=== PATIENT | male | born 1975 | race Caucasian/White ===

== ENCOUNTER → 2017-11-09 | Outpatient (REF) | payer BC | LOC: M LAB REF 08:27 | DX: L02.11 Cutaneous abscess of neck (principal) | CPT/HCPCS: 87186 ==

== ENCOUNTER → 2018-09-28 | Outpatient (CLI) | payer BC | LOC: M WUC 16:51 | DX: M51.37 Other intervertebral disc degeneration, lumbosacral region (principal); M25.78 Osteophyte, vertebrae; M54.5 Low back pain | CPT/HCPCS: 72110 ==

== ENCOUNTER → 2020-07-22 | Outpatient (CLI) | payer BC ==
--- NOTE | 2020-07-29 18:07 | REP ---
THORACIC SPINE SERIES HISTORY: Pain at T10 to T12. TECHNIQUE: Three AP and lateral views of the thoracic spine are performed. FINDINGS: There is no compression fracture or malalignment. There is normal thoracic kyphosis. There is very mild spurring of the upper and mid thoracic vertebral bodies with a more moderate degree of spurring of T9 through T12. There is very mild disc space narrowing and subchondral sclerosis noted. Posterior elements appear intact. There is slight curvature toward the right. IMPRESSION: Degenerative changes as discussed above. No evidence of fracture or malalignment. MTDD
== END ==
LOC: M WUC 12:32
PROVIDERS: ATTEND Physician Assistant Medical
DX: M51.34 Other intervertebral disc degeneration, thoracic region (principal)

== ENCOUNTER → 2020-09-23 | Outpatient (CLI) | payer SELFPAY | LOC: M LABSMTC 15:31 | PROVIDERS: ATTEND Pediatrics | DX: Z20.828 Contact with and (suspected) exposure to other viral communicable diseases (principal) ==

== ENCOUNTER → 2020-11-25 | Outpatient (REF) | payer BC ==
[2020-11-27 09:07] LABS: LDL DIRECT 98 mg/dL (0-99)
== END ==
LOC: M LAB REF 12:12
PROVIDERS: ATTEND Physician Assistant Medical
DX: E78.00 Pure hypercholesterolemia, unspecified (principal)

== ENCOUNTER → 2023-11-11 | Outpatient (CLI) | payer BC ==
[~2023-11-11] MED LIST: PROHANCE 279.3MG/ML 15ML VIAL ONE; PROHANCE 279.3MG/ML 5ML VIAL ONE
== END ==
LOC: M PLAIMG 08:10
PROVIDERS: ATTEND Physician Assistant Medical
DX: R51.9 Headache, unspecified (principal); H54.7 Unspecified visual loss; J01.30 Acute sphenoidal sinusitis, unspecified
CPT/HCPCS: 70544; 70553; A9576

== ENCOUNTER → 2023-11-23 | Outpatient (CLI) | payer BC | LOC: M WUC 13:25 | PROVIDERS: ATTEND Internal Medicine | DX: S12.400A Unspecified displaced fracture of fifth cervical vertebra, initial encounter for closed fracture (principal); Y93.9 Activity, unspecified; Y92.9 Unspecified place or not applicable ==

== ENCOUNTER → 2024-01-27 | Outpatient (REF) | payer BC | LOC: M LAB REF 17:30 | PROVIDERS: ATTEND Physician Assistant Medical | DX: R51.9 Headache, unspecified (principal) ==

== ENCOUNTER → 2024-02-18 | Outpatient (CLI) | payer BC ==
[~2024-02-18] MED LIST changes: +PROHANCE 279.3MG/ML 15ML VIAL As Ordered ONE; -PROHANCE 279.3MG/ML 15ML VIAL ONE; -PROHANCE 279.3MG/ML 5ML VIAL ONE
== END ==
LOC: M RAD 15:33
PROVIDERS: ATTEND Physician Assistant Medical
DX: R51.9 Headache, unspecified (principal)
CPT/HCPCS: 70549; A9576

== ENCOUNTER → 2024-05-29 | Outpatient (REF) | payer BC | LOC: M LAB REF 17:18 | PROVIDERS: ATTEND Physician Assistant Medical | DX: K59.00 Constipation, unspecified (principal) ==

== ENCOUNTER 2024-08-31 09:22 | Day surgery (SDC) | payer BC ==
[~2024-08-31] VITALS: Ht 170.2 cm; Wt 105.1 kg
[~2024-08-31 09:22] MED LIST changes: +FLUO20TA28 PO; +LOSA100T46 PO; +NS 250 ML IV ONE; +OMEP1CAP73 PO; -PROHANCE 279.3MG/ML 15ML VIAL As Ordered ONE; +SUMA50TA2 PO; +UBRO50TA PO; +VERA40TA PO
[2024-08-31] MEDS ORDERED: propofoL 200 MG/20 ML VIAL As Ordered ONE (10:01)
[2024-08-31] MEDS ORDERED: LIDOCAINE 2% 100MG/5ML SDV (FOR ANES.) As Ordered ONE (10:01)
[2024-08-31 11:35] VITALS: BP 117/70; O2SAT 96
== END 2024-08-31 11:40 | disposition home or self-care (01) ==
LOC: M OPP 09:22
PROVIDERS: ATTEND Surgery
DX: K62.5 Hemorrhage of anus and rectum (principal); K64.1 Second degree hemorrhoids; K21.9 Gastro-esophageal reflux disease without esophagitis; Z87.19 Personal history of other diseases of the digestive system; I10 Essential (primary) hypertension; G43.909 Migraine, unspecified, not intractable, without status migrainosus; Z79.899 Other long term (current) drug therapy; F17.290 Nicotine dependence, other tobacco product, uncomplicated